=== PATIENT | male | born 1965 | race Caucasian/White ===

== ENCOUNTER 2022-05-08 06:22 | Inpatient (IN) ==
--- NOTE | 2022-04-12 22:01 | PAT Medication Instructions ---
Medication Instructions Date of Service April 12, 2022 Home Medications aspirin 81 mg capsule 81 mg PO QAM celecoxib 200 mg capsule (Celebrex) 200 mg PO QAM cholecalciferol (vitamin D3) 125 mcg (5,000 unit) tablet (Vitamin D3) 125 mcg PO Q2D cyanocobalamin (vitamin B-12) 500 mcg tablet (Vitamin B-12) 500 mcg PO Q2D cyclobenzaprine 10 mg tablet 10 mg PO TID PRN Pain gabapentin 600 mg tablet 600 mg PO TID gemfibrozil 600 mg tablet (Lopid) 600 mg PO BID hydrocodone 5 mg-acetaminophen 325 mg tablet 1 tab PO BID PRN Pain losartan 100 mg-hydrochlorothiazide 25 mg tablet (Hyzaar) 1 tab PO QAM omeprazole 20 mg capsule,delayed release 20 mg PO QAM rosuvastatin 10 mg tablet (Crestor) 10 mg PO QAM sertraline 50 mg tablet (Zoloft) 50 mg PO QAM tadalafil 5 mg tablet (Cialis) 5 mg PO QAM tamsulosin 0.4 mg capsule (Flomax) 0.4 mg PO QAM ASK your surgeon for instructions celecoxib 200 mg capsule (Celebrex) 200 mg PO QAM ASK your prescriber and surgeon aspirin 81 mg capsule 81 mg PO QAM STOP taking 48 hours before surgery gemfibrozil 600 mg tablet (Lopid) 600 mg PO BID STOP taking 24 hours before surgery tadalafil 5 mg tablet (Cialis) 5 mg PO QAM DO NOT take the morning of surgery cholecalciferol (vitamin D3) 125 mcg (5,000 unit) tablet (Vitamin D3) 125 mcg PO Q2D cyanocobalamin (vitamin B-12) 500 mcg tablet (Vitamin B-12) 500 mcg PO Q2D cyclobenzaprine 10 mg tablet 10 mg PO TID PRN Pain losartan 100 mg-hydrochlorothiazide 25 mg tablet (Hyzaar) 1 tab PO QAM Take morning of surgery With a small sip of water, OTHERWISE NOTHING TO EAT OR DRINK AFTER MIDNIGHT: gabapentin 600 mg tablet 600 mg PO TID (continue as normal unless told otherwise by surgeon) hydrocodone 5 mg-acetaminophen 325 mg tablet 1 tab PO BID PRN Pain (if needed) omeprazole 20 mg capsule,delayed release 20 mg PO QAM rosuvastatin 10 mg tablet (Crestor) 10 mg PO QAM sertraline 50 mg tablet (Zoloft) 50 mg PO QAM tamsulosin 0.4 mg capsule (Flomax) 0.4 mg PO QAM Take evening before surgery cyclobenzaprine 10 mg tablet 10 mg PO TID PRN Pain (if needed) gabapentin 600 mg tablet 600 mg PO TID hydrocodone 5 mg-acetaminophen 325 mg tablet 1 tab PO BID PRN Pain (if needed) Other Notes If you have any questions please call us at [phone] or [phone] or [phone] or [phone]
--- NOTE | 2022-04-18 13:08 | Anesthesiology Consultation ---
Date of Service April 18, 2022 Assessment & Plan (1) Encounter for pre-operative examination: Chart Review Chart Review: Acceptable Risk for Surgery (pending PCP clearance 04/25/22, possible daughter's anesthesia records, and repeat labs day prior to surgery per Blood Bank ) and Patient seen in Pre Admission Testing -Awaiting PCP clearance 04/25/22 -Discussed patient's daughter's anesthesia reaction with Dr. Davison- patient will attempt to get daughter's anesthesia records (had one episode of "being really hot" after surgery- no issues since then- patient denies FH of MH but will attempt to get records to confirm) Pt had positive antibodies with T&S- per Blood Bank- patient will need additional labs and specific blood ordered day prior to surgery- patient will be getting repeat labs at [facility] between 7-8am on 05/07/22 (patient and Blood Bank aware) Per PAT appt on 04/18/22, patient denies any recent travel or large group activities. Pt is vaccinated for Covid. Will leave to surgeon's discretion if preop Covid testing needed. Educated on importance of using Covid precautions one week prior to surgery History Surgery Operation Date: 05/08/22 07:45 Proposed Procedures p L2-S1 Decompression and Fusion - Laci Najera, Height/Weight Height: 6 ft Weight: 147.5 kg Allergies Allergy/AdvReac Type Severity Reaction Status Date / Time No Known Allergies Allergy Verified 04/12/22 12:17 Medications Home Medications Medication Instructions Recorded Confirmed Last Taken aspirin 81 mg capsule 81 mg PO QAM 04/12/22 04/12/22 Unknown celecoxib 200 mg capsule (Celebrex) 200 mg PO QAM 04/12/22 04/12/22 Unknown cholecalciferol (vitamin D3) 125 125 mcg PO Q2D 04/12/22 04/12/22 Unknown mcg (5,000 unit) tablet (Vitamin D3) cyanocobalamin (vitamin B-12) 500 500 mcg PO Q2D 04/12/22 04/12/22 Unknown mcg tablet (Vitamin B-12) cyclobenzaprine 10 mg tablet 10 mg PO TID PRN Pain 04/12/22 04/12/22 Unknown gabapentin 600 mg tablet 600 mg PO TID 04/12/22 04/12/22 Unknown gemfibrozil 600 mg tablet (Lopid) 600 mg PO BID 04/12/22 04/12/22 Unknown hydrocodone 5 mg-acetaminophen 325 1 tab PO BID PRN Pain 04/12/22 04/12/22 Unknown mg tablet losartan 100 1 tab PO QAM 04/12/22 04/12/22 Unknown mg-hydrochlorothiazide 25 mg tablet (Hyzaar) omeprazole 20 mg capsule,delayed 20 mg PO QAM 04/12/22 04/12/22 Unknown release rosuvastatin 10 mg tablet (Crestor) 10 mg PO QAM 04/12/22 04/12/22 Unknown sertraline 50 mg tablet (Zoloft) 50 mg PO QAM 04/12/22 04/12/22 Unknown tadalafil 5 mg tablet (Cialis) 5 mg PO QAM 04/12/22 04/12/22 Unknown tamsulosin 0.4 mg capsule (Flomax) 0.4 mg PO QAM 04/12/22 04/12/22 Unknown Past Medical History Medical History (Updated 04/19/22 @ 09:18 by Patricia Mulligan PA-C) Family history of reaction to anesthesia Daughter - got "hot" and anxious in the post op area after surgery - remote hx- no issues with subsequent surgeries - denies hx of MH GERD (gastroesophageal reflux disease) Well controlled and stable High triglycerides Recently started on Crestor (also on gemfibrozil) History of chronic back pain History of COVID-19 09/2021, pcr test [facility] [place], not hosp; body aches, fever>resolved, did take pax lovid History of urinary retention Trouble starting the urinary flow in the morning- patient unsure if related to back issues vs prostate Hx of blood clots Noted incidentally on routine eye exam - blood clot to eye - s/p injections - no current issues - currently on ASA daily Hypertension Sleep apnea cpap Exercise / Class Metabolic Activity II 4-5 Yardwork/Stairs/Walk up hill (one flight of stairs - no chest pain or SOB ) Past Surgical History Surgical History No history of previous surgery Past Anesthesia History No Family Hx of Anesthesia Complications (with exception to daughter- got hot in the post op area and anxious- no hx of MH per patient ) History of PONV No Hx of Motion Sickness Social History Smoking Status: Current every day smoker Smoking cigarettes per day: used to use cigarettes, now vapes Do You Dip or Chew Tobacco: No Hx Alcohol Use: Yes alcohol intake frequency: holidays/special occasions only Hx Substance Use: No substance use type: does not use Review of Systems Patient denies chest pain, shortness of breath, dyspnea on exertion, cough, wheezing, palpitations. No hx of seizures, stroke, [place]. No hx of blood clots or blood transfusions Physical Exam Vital Signs VITALS BP 125/73 P 77 TEMP 98.7 SP02 95% RESP 16 Constitutional no acute distress ENMT Mouth: no TMJ clicking Thyromental Distance: > or= 3.5 Finger Breadths (3.5) Mallampati Class: III Upper partial Neck neck extension not limited Respiratory normal respiratory effort; no respiratory distress Auscultation: lungs clear to auscultation bilaterally; no wheezes Cardiovascular Rate/Rhythm: regular rate and regular rhythm Heart Sounds: no murmur Vessels: no carotid bruit Musculoskeletal Spine: no pain with cervical ROM Extremities: extremities normal to inspection Psychiatric Orientation: alert Lab Results Anesthesia Preop Results Results Anesthesia Widget: PT 12.1 Seconds (9.0-12.0) H 04/18/22 PTT 26.1 Seconds (21.0-31.0) 04/18/22 INR 1.1 (0.9-1.1) 04/18/22 Urine Color Yellow 04/18/22 Urine Appearance Clear (Clear) 04/18/22 Urine pH 7.0 (4.5-7.5) 04/18/22 Urine Specific Cades 1.023 (1.000-1.030) 04/18/22 Urine Protein Trace (Negative) H 04/18/22 Urine Glucose (UA) Negative (Negative) 04/18/22 Urine Ketones Trace (Negative) H 04/18/22 Urine Blood Negative (Negative) 04/18/22 Urine Nitrite Negative (Negative) 04/18/22 Urine Bilirubin Negative (Negative) 04/18/22 Urine Urobilinogen Negative (Negative) 04/18/22 Urine Leukocyte Esterase Negative (Negative) 04/18/22 Urine WBC (Auto) 0 /hpf (0-5) 04/18/22 Urine RBC (Auto) 0-4 /hpf (0-4) 04/18/22 Urine Hyaline Casts (Auto) 1-5 /lpf (0-5) 04/18/22 Urine Epithelial Cells (Auto) 0-5 /lpf (0-5) 04/18/22 Urine Bacteria (Auto) Negative (Negative) 04/18/22 Blood Type A Positive 04/18/22 Antibody Screen POSITIVE A 04/18/22 Testing Laboratory Results Positive antibodies- per Blood Bank- patient needs additional testing done within 48 hours of surgery- patient will come to [facility] 05/07/22 between 7-8am for repeat labs (pt and Blood Bank aware) 04/06/22= WBC: 7.70 H/H: 14.0/42.1 PLATELETS: 219 SODIUM: 136 POTASSIUM: 4.1 CHLORIDE: 102 CO2: 26.0 BUN: 17.0 CREATININE: 1.10 GLUCOSE: 136 Electrocardiogram Date: 04/18/22 Findings: + NSR @ (74bpm ) Normal EKG per cardio Chest X-Ray Date: 04/18/22 Findings: + NAD COVID-19 Risk Screen Screening Information COVID-19 Screen Date: 04/18/22 Exposure 21 Days Family/Household +COVID Last 21 Days: No Exposure 10 Days Any COVID Exposure Last 10 Days: No Symptoms Last 10 Days Experienced COVID Sx Last 10 Days: No + COVID 0-90 Days COVID + in Last 0-90 Days: No Risk Plan COVID Risk Plan: No Risk Identified Patient Education COVID Preop Screening Education Complete: Yes
[~2022-05-08 06:22] MED LIST: ACETAMINOPHEN 500 MG TAB PO SCH; CeleBREX 200 MG CAP PO SCH; GABAPENTIN 600 MG DOSE PO SCH; LR 15ML/HR IV SCH
[2022-05-08] MEDS ORDERED: fentaNYL citrate 100 MCG/2 ML VIAL ONE (07:03)
[2022-05-08] MEDS ORDERED: LIDOCAINE 2% MPF LOCAL 5 ML VIAL INFIL ONE (07:03)
[2022-05-08] MEDS ORDERED: PROPOFOL IV EMULSION 10 MG/ML 20 ML VIAL IV ONE ×2 (07:03→08:30)
[2022-05-08] MEDS ORDERED: ROCURONIUM BROMIDE 10 MG/ML 5 ML VIAL IV ONE ×6 (07:03→10:21)
[2022-05-08] MEDS ORDERED: MIDAZOLAM HCL 1 MG/ML 2ML VIAL ONE (07:04)
[2022-05-08] MEDS ORDERED: KETAMINE 50 MG/5 ML SYRINGE ONE (07:04)
[2022-05-08] MEDS ORDERED: ePHEDrine sulfate 50 MG/ML AMP IV PRN ×2 (07:16→15:40)
[2022-05-08] MEDS ORDERED: ONDANSETRON INJ 2 MG/ML 2 ML VIAL IV PRN ×3 (07:16→16:50)
[2022-05-08] MEDS ORDERED: LABETALOL HCL IV 5 MG/ML 20ML IV PRN ×2 (07:16→15:40)
[2022-05-08] MEDS ORDERED: PHENYLEPHRINE 100MCG/ML 5ML SYR IV PRN ×2 (07:16→15:41)
[2022-05-08] MEDS ORDERED: ATROPINE SULFATE 0.1 MG/ML 10ML SYR IV PRN ×2 (07:16→15:41)
[2022-05-08] MEDS ORDERED: HYDROmorphone INJ 1 MG/ML SYRINGE IV PRN ×3 (07:16→16:50)
[2022-05-08] MEDS ORDERED: MEPERIDINE HCL 25 MG/ML CARP/VIAL IV PRN ×2 (07:16→15:40)
[2022-05-08] MEDS ORDERED: BUPIVACAINE/EPINEPHRINE 0.25% 1:200,000 30 ML VIAL ONE (07:37)
[2022-05-08] MEDS ORDERED: ceFAZolin 330 MG/ML 1 GM VIAL ONE (07:37)
--- NOTE | 2022-05-08 07:37 | History & Physical Bridge Note ---
Date of Service May 08, 2022 History & Physical Bridge Note I have examined the patient, reviewed the History & Physical and in the interval since the performance of the History & Physical I have noted the following changes of clinical significance: no changes noted
--- NOTE | 2022-05-08 07:38 | History & Physical Report ---
Date of Service May 08, 2022 Assessment & Plan (1) Neurogenic claudication due to lumbar spinal stenosis: Plan: L2-S1 decompression and fusion History of Present Illness Chief Complaint: Back and leg pain Primary Care Provider: Cherise Rice This is a 57-year-old male presents with chronic persistent back and leg pain after failing since course of nonoperative care is here for surgical intervention. Allergies Allergy/AdvReac Type Severity Reaction Status Date / Time No Known Allergies Allergy Verified 05/08/22 06:53 Home Medications Medication Instructions Recorded Confirmed Type aspirin 81 mg capsule 81 mg PO QAM 04/12/22 05/08/22 History celecoxib 200 mg capsule (Celebrex) 200 mg PO QAM 04/12/22 05/08/22 History cholecalciferol (vitamin D3) 125 125 mcg PO Q2D 04/12/22 05/08/22 History mcg (5,000 unit) tablet (Vitamin D3) cyanocobalamin (vitamin B-12) 500 500 mcg PO Q2D 04/12/22 05/08/22 History mcg tablet (Vitamin B-12) cyclobenzaprine 10 mg tablet 10 mg PO TID PRN Pain 04/12/22 05/08/22 History gabapentin 600 mg tablet 600 mg PO TID 04/12/22 05/08/22 History gemfibrozil 600 mg tablet (Lopid) 600 mg PO BID 04/12/22 05/08/22 History hydrocodone 5 mg-acetaminophen 325 1 tab PO BID PRN Pain 04/12/22 05/08/22 History mg tablet losartan 100 1 tab PO QAM 04/12/22 05/08/22 History mg-hydrochlorothiazide 25 mg tablet (Hyzaar) omeprazole 20 mg capsule,delayed 20 mg PO QAM 04/12/22 05/08/22 History release rosuvastatin 10 mg tablet (Crestor) 10 mg PO QAM 04/12/22 05/08/22 History sertraline 50 mg tablet (Zoloft) 50 mg PO QAM 04/12/22 05/08/22 History tadalafil 5 mg tablet (Cialis) 5 mg PO QAM 04/12/22 05/08/22 History tamsulosin 0.4 mg capsule (Flomax) 0.4 mg PO QAM 04/12/22 05/08/22 History Past Med/Surg History Medical History (Updated 05/08/22 @ 07:38 by Laci Najera DO) Family history of reaction to anesthesia Daughter - got "hot" and anxious in the post op area after surgery - remote hx- no issues with subsequent surgeries - denies hx of MH GERD (gastroesophageal reflux disease) Well controlled and stable High triglycerides Recently started on Crestor (also on gemfibrozil) History of chronic back pain History of COVID-19 09/2021, pcr test [facility] [place], not hosp; body aches, fever>resolved, did take pa xlovid History of urinary retention Trouble starting the urinary flow in the morning- patient unsure if related to back issues vs prostate Hx of blood clots Noted incidentally on routine eye exam - blood clot to eye - s/p injections - no current issues - currently on ASA daily Hypertension Morbid obesity Sleep apnea cpap Surgical History No history of previous surgery Social History Smoking Status: Current every day smoker Cigarettes Per Day: used to use cigarettes, now vapes; Second Hand Exposure: Yes; Do You Dip or Chew Tobacco: No; Tobacco Cessation Education Requested by Patient: No Hx Alcohol Use: Yes Hx Substance Use: No Preferred Language: Cambodian Communication Ability: Effective Shingle Weaver Required: No Beliefs That Will Affect Care: None Current Living Situation: Spouse Other Information That Helps Us Care for You: No Feels Safe at Home: Yes Safety Concerns: Feels Safe At This Time Assistive Devices: CPAP, Denture - Upper and Glasses Assistive Devices Comment: partial upper denture Physical Exam Physical Exam: Patient is alert and oriented Heart regular rhythm Lungs clear Results & Data Results & Data ([facility]) Vital Signs (Past 12 Hours) Vital Signs Temp Pulse Resp BP Pulse Ox O2 Del Method 05/08/22 07:03 36.8 C 79 22 107/60 95 Room Air
[2022-05-08] MEDS ORDERED: DEXAMETHASONE SOD INJ 4 MG/ML VIAL ONE (08:34)
[2022-05-08] MEDS ORDERED: ONDANSETRON INJ 2 MG/ML 2 ML VIAL ONE (08:34)
[2022-05-08] MEDS ORDERED: HYDROmorphone INJ 2 MG/ML SYR/VIAL ONE (08:39)
[2022-05-08] MEDS ORDERED: FLOSEAL HEMOSTATIC MATRIX 10ML TOP ONE (08:46)
[2022-05-08] MEDS ORDERED: ePHEDrine sulfate 50 MG/ML SYR ONE (09:06)
[2022-05-08] MEDS ORDERED: ALBUMIN HUMAN 5% 12.5 GM/250 ML VIAL IV ONE (09:57)
[2022-05-08] MEDS ORDERED: PHENYLEPHRINE HCL 10 MG/ML VIAL ONE (10:02)
[2022-05-08] MEDS ORDERED: SUGAMMADEX SODIUM 200 MG/2 ML VIAL IV ONE (11:40)
[2022-05-08] MEDS ORDERED: GLYCOPYRROLATE 0.2 MG/ML VIAL ONE (11:43)
[2022-05-08] MEDS ORDERED: NEOSTIGMINE METHYLSULFATE 1 MG/ML 10ML VIAL ONE (11:43)
--- NOTE | 2022-05-08 11:48 | Operative Report ---
Post Operative Report Pre & Post Diagnosis Operation Date: 05/08/22 07:45 Pre-Op Diagnosis: Lumbar spinal stenosis with neurogenic claudication Lumbar disc herniation with radiculopathy Morbid obesity Post-Op Diagnosis: Same I identified the patient and participated in the time-out.: Yes Procedure Operation Date: 05/08/22 07:45 Actual Procedures #1 lumbar decompression bilateral medial facetectomies and foraminotomies L1-L2, L2-L3, L3-L4, L4-L5 and L5-S1. #2 posterior spinal fusion L2-S1. #3 placement posterior segmental instrumentation L2-S1. #4 interbody fusion L3-L4, L4-5 and L5-S1. #5 placement of Spira 14 x 26 mm cage at L3-L4, 14 x 26 mm cage at L4-L5 and 13 x 26 mm cage L5-S1. #6 placement locally harvested morselized autograft in the posterior gutters. #7 placement of I factor combined with V toss in interbody space and posterior lateral gutters. Surgeon Laci Najera, DO Route Vending Machine Serv[employer] Flor Singleton Estimated Blood Loss 1,400 Findings See Below The patient is 6 foot tall weighing over 144 kg with a BMI in excess of 43. This combined with an EBL of greater than 1400 cc created significant technical difficulty. This at least 50% increased operative time. Specimens None Indications This is a 57-year-old male who presents above-mentioned diagnosis after failed course of nonoperative care is here for surgical intervention. Description of Procedure Patient was met with identified informed consent obtained. Patient was then ta brayan to the operative suite underwent ablation placed in a prone position on a Zoltan table top Edgar frame. All bony prominences well-padded eyes inspected to ensure no external pressure placed upon the. This point the lumbar spine was prepped and draped in the normal sterile fashion. Sharp dissection with the assistance of Bovie cautery was performed down to and exposing the lamina transverse processes of L2 L3-L4-L5 and the sacral ala bilaterally. From caudal to cephalad fashion complete laminectomy of L5 L4 L3 L2 and partial laminectomy of L1 was performed including bilateral medial facetectomies and foraminotomies addressing severe spinal stenosis. Pedicle screws were then placed in L2 L3-L4-L5 and S1 levels bilaterally with assistance of fluoroscopy and appropriately sized main placed. By way of a transforaminal approach on the right a complete discectomy of L5-S1 was performed endplates curetted to subcortical and bone and a 13 x 26 mm spiral cage filled with I factor tapped in position. Then proceeded to L4-L5 and again by way of a transforaminal approach on the right complete discectomy performed endplates curetted to subcortical and bone and a 14 x 26 mm spiral cage filled with I factor tapped in position. Lastly proceeded to L3-L4 and again by way of a transforaminal approach and right complete discectomy performed endplates curetted to subcortical bleeding b one and a 14 x 26 mm spiral cage with I factor tapped in position. Rods and locked in final position bilaterally. The transverse processes of L2 L3-L4-L5 and the sacral ala burred to subcortically bone. I factor combined with V toss and locally harvested morselized autograft placed in the posterior gutters. 15 round MARISOL drain inserted. The incision was then closed with 1 Vicryl in the fascia 2-0 Vicryl subcutaneously and 4 Monocryl for final skin closure. Steri- Strips dressings placed. Patient waken taken to PACU stable condition. Please note spinal cord monitoring was utilized at the procedure no changes noted. Lastly Flor Singleton was present at the entire procedure involved patient positioning complex portions of the surgery and final skin closure. I attest to the content of the Intraoperative Record and any orders documented therein. Any exceptions are noted below.
[2022-05-08] MEDS: fentaNYL citrate 100 MCG/2 ML VIAL IV PRN ×3 (12:30→13:44)
[2022-05-08] MEDS ORDERED: HYDROmorphone INJ 0.5 MG/0.5 ML SYR ONE (12:36)
[2022-05-08] MEDS ORDERED: HYDROmorphone INJ 0.5 MG/0.5 ML SYR IV STA (12:36)
--- NOTE | 2022-05-08 12:53 | Anesthesiology Progress Note ---
Date of Service May 08, 2022 Anesthesia Post Procedure Vital Signs Vital Signs: Temp Pulse Resp BP Pulse Ox O2 Del Method O2 Flow Rate 05/08/22 12:35 77 21 103/66 94 Oxymask 5 05/08/22 12:25 78 21 124/68 100 Oxymask 5 05/08/22 12:15 77 22 141/71 H 99 Oxymask 5 05/08/22 12:08 36.3 C L 78 22 110/67 96 Oxymask 5 05/08/22 07:03 36.8 C 79 22 107/60 95 Room Air Pain Intensity Lower Back: Pain Intensity: 2 Transfer of Care Handoff Completed per policy Notes Mental Status: alert / awake / arousable Patient Amnestic to Procedure: Yes Nausea / Vomiting: adequately controlled Pain: adequately controlled Airway Patency, RR, SpO2: stable & adequate BP & HR: stable & adequate Hydration State: stable & adequate Anesthetic Complications: no major complications apparent and Pt Satisfied with anesthetic care Notes: The patient is resting comfortably. His vital signs are stable. The patient's EBS was 1500 ml for the surgery. He was noted to have dark red tinged urine and only put out about 150 ml of urine for the procedure. His vital signs are stable. He remains on face mask oxygen and did bring his CPAP machine. [facility] and they will follow him on the floor.
--- NOTE | 2022-05-08 13:05 | Fluoroscopy Report ---
FL lumbar spine 2-3V CLINICAL HISTORY: L2-S1 DECOMPRESSION AND FUSION WITH INTERBODIES TECHNIQUE: 5 views were obtained with the C-arm in the OR with the above procedure. Total fluoroscopy time was 46.1 seconds. Radiation dose was 40.01 mGy. Comparison: None available at the time of this dictation. FINDINGS/IMPRESSION: Intraoperative images were obtained of L2-S1 decompression and fusion. Please correlate with intraoperative fluoroscopy and operative report. ACT 112: Negative or not required by law. Electronically signed by: Basilio Morrow M.D. 05/08/2022 1:04 PM
[2022-05-08] MEDS ORDERED: fentaNYL citrate 100 MCG/2 ML VIAL IV PRN (15:40)
[2022-05-08] MEDS: LACTATED RINGER'S 1,000 ML IV SCH ×2 (16:40→23:36)
[2022-05-08] MEDS ORDERED: traMADol HCL 50 MG TABLET PO PRN (16:50)
[2022-05-08] MEDS ORDERED: CYCLOBENZAPRINE HCL 10 MG TAB PO PRN (16:50)
[2022-05-08] MEDS ORDERED: ACETAMINOPHEN 1,000 MG/100 ML VIAL IV PRN (16:50)
[2022-05-08] MEDS ORDERED: FAMOTIDINE 20 MG TAB PO PRN (16:50)
[2022-05-08] MEDS ORDERED: METOCLOPRAMIDE HCL INJ 5 MG/ML 2 ML VIAL IV PRN (16:50)
[2022-05-08] MEDS ORDERED: ONDANSETRON 4 MG OD TAB PO PRN (16:50)
[2022-05-08] MEDS ORDERED: LORazepam 2 MG/1 ML VIAL IV PRN (16:50)
[2022-05-08] MEDS ORDERED: MAGNESIUM HYDROXIDE SUSP 30 ML UDC PO PRN (16:50)
[2022-05-08] MEDS ORDERED: diphenhydrAMINE Capsule 25 MG CAP PO PRN (16:50)
[2022-05-08] MEDS ORDERED: ALUMINUM/MAGNESIUM SUSP 30 ML UDC PO PRN (16:50)
[2022-05-08] MEDS ORDERED: HYDROmorphone INJ 0.5 MG/0.5 ML SYR IV PRN (16:50)
[2022-05-08] MEDS ORDERED: hydrOXYzine HCl 25 MG TAB PO PRN (16:50)
[2022-05-08] MEDS ORDERED: DO NOT ADMINISTER FLU VACCINE PRN (16:50)
[2022-05-08] MEDS ORDERED: PROMETHAZINE HCL 12.5 MG in SODIUM CHLORIDE 0.9% 50 ML IV PRN (16:50)
[2022-05-08] MEDS ORDERED: NALOXONE HCL 0.4 MG/1 ML VIAL/CARP IV PRN (16:50)
[2022-05-08] MEDS ORDERED: DO NOT ADMINISTER PNEUMOCOCCAL VACCINE PRN (16:50)
[2022-05-08] MEDS ORDERED: SOD PHOSPHATE/SOD BIPHOSPHATE ENEMA 132 ML BTL PR PRN (16:50)
[2022-05-08] MEDS ORDERED: LORazepam 0.5 MG TAB PO PRN (16:50)
[2022-05-08] MEDS ORDERED: bisacodyL 10 MG SUPP PR PRN (16:50)
[2022-05-08] MEDS: GABAPENTIN 600 MG TAB PO SCH ×2 (18:30→20:53)
[2022-05-08] MEDS: CHOLECALCIFEROL 5,000 UNITS 125 MCG TAB PO SCH (18:30)
[2022-05-08] MEDS: CYANOCOBALAMIN (B-12) 500 MCG TABLET PO SCH (18:30)
[2022-05-08] MEDS: ceFAZolin 2000MG 2,000 MG/15 ML SYR IV SCH (18:35)
--- NOTE | 2022-05-08 19:26 | Consultation ---
Date of Consultation May 08, 2022 Assessment & Plan (1) Status post lumbar surgery: (2) Neurogenic claudication due to lumbar spinal stenosis: Post op day# 0 S/P L1-S1 decompression and fusion by Dr Dania MORAN#[id number] -pain management per ortho -wound management per ortho -PT/OT as appropriate -DVT prophylaxis per ortho -incentive spirometry -monitor H&H for acute blood loss anemia; pre-op Hgb: 14 -monitor urine output. 150ml output during 4 hour operation. Noted 350ml urine output currently in Rodriguez (3) Hypertension: - Continue losartan, HCTZ (4) HLD (hyperlipidemia): - Continue rosuvastatin, gemfibrozil (5) GERD (gastroesophageal reflux disease): - Continue PPI (6) Sleep apnea: - CPAP at bedtime DVT Prophylaxis -SCDSs Disposition per primary team Follows with Dr Cherise Rice [facility] for routine care Pt was seen and care coordinated with Dr Carballo. See addendum Thank you for this consultation. We will follow the patient with you during their hospital stay. You can reach a member of the [facility]ist Team 12/11 via [employer] (7) Morbid obesity: Supervising Physician Co-Signing Physician Notes Patient is a 57-year-old man status post lumbar decompression and fusion this afternoon. He has not walked postoperatively and reports pain is well managed. He states he just adjusted himself in bed and felt some pain with this but otherwise is doing well. He has no numbness or tingling in his feet he denies any chest pain or trouble breathing or other issues. Rodriguez catheter is completely full and total urine output has been over 3 L today. Patient reports drinking mostly Pepsi and Coke at home and avoiding water. He reports being dehydrated most of the time. Records and medication list were reviewed. Physical exam as noted above. Continue plan as noted above. Thank you for this consultation. DO Haris History of Present Illness Requesting Physician: Dr Najera Reason for Consultation: Post op medical management Attending Physician: Laci Najera DO History of Present Illness Patient is 57 y/o M with PMH HTN, HLD, GERD, urinary retention, NEVILLE on CPAP, obesity seen in medical consultation s/p L1-S1 decompression and fusion today by Dr Najera. Post op patient reports back pain is controlled. Denies lower extremity pain or paresthesias. Denies nausea, vomiting. Last BM yesterday. Has Rodriguez cath in place. Reported urine output of 150ml during 4 hour case. Noted 350ml urine in Rodriguez currently. Denies fever/chills, diaphoresis, N/V/D, FINCH, dizziness, CP, SOB, cough, sore throat, rhinorrhea, abdominal pain, extremity edema, rashes, dysruia, hematuria. Allergies Allergy/AdvReac Type Severity Reaction Status Date / Time No Known Allergies Allergy Verified 05/08/22 06:53 Home Medications Medication Instructions Recorded Confirmed Type aspirin 81 mg capsule 81 mg PO QAM 04/12/22 05/08/22 History celecoxib 200 mg capsule (Celebrex) 200 mg PO QAM 04/12/22 05/08/22 History cholecalciferol (vitamin D3) 125 125 mcg PO Q2D 04/12/22 05/08/22 History mcg (5,000 unit) tablet (Vitamin D3) cyanocobalamin (vitamin B-12) 500 500 mcg PO Q2D 04/12/22 05/08/22 History mcg tablet (Vitamin B-12) cyclobenzaprine 10 mg tablet 10 mg PO TID PRN Pain 04/12/22 05/08/22 History gabapentin 600 mg tablet 600 mg PO TID 04/12/22 05/08/22 History gemfibrozil 600 mg tablet (Lopid) 600 mg PO BID 04/12/22 05/08/22 History hydrocodone 5 mg-acetaminophen 325 1 tab PO BID PRN Pain 04/12/22 05/08/22 History mg tablet losartan 100 1 tab PO QAM 04/12/22 05/08/22 History mg-hydrochlorothiazide 25 mg tablet (Hyzaar) omeprazole 20 mg capsule,delayed 20 mg PO QAM 04/12/22 05/08/22 History release rosuvastatin 10 mg tablet (Crestor) 10 mg PO QAM 04/12/22 05/08/22 History sertraline 50 mg tablet (Zoloft) 50 mg PO QAM 04/12/22 05/08/22 History tadalafil 5 mg tablet (Cialis) 5 mg PO QAM 04/12/22 05/08/22 History tamsulosin 0.4 mg capsule (Flomax) 0.4 mg PO QAM 04/12/22 05/08/22 History Patient History Medical History (Updated 05/08/22 @ 21:29 by Bailee Perez PA-C) Family history of reaction to anesthesia Daughter - got "hot" and anxious in the post op area after surgery - remote hx- no issues with subsequent surgeries - denies hx of MH GERD (gastroesophageal reflux disease) Well controlled and stable High triglycerides Recently started on Crestor (also on gemfibrozil) History of chronic back pain History of COVID-19 09/2021, pcr test [facility] [place], not hosp; body aches, fever>resolved, did take paxlovid History of urinary retention Trouble starting the urinary flow in the morning- patient unsure if related to back issues vs prostate HLD (hyperlipidemia) Hx of blood clots Noted incidentally on routine eye exam - blood clot to eye - s/p injections - no current issues - currently on ASA daily Hypertension Morbid obesity Sleep apnea cpap Surgical History (Updated 05/08/22 @ 21:28 by Bailee Perez PA-C) No history of previous surgery Social History Smoking Status: Current every day smoker Cigarettes Per Day: used to use cigarettes, now vapes; Second Hand Exposure: Yes; Do You Dip or Chew Tobacco: No; Tobacco Cessation Education Requested by Patient: No Hx Alcohol Use: Yes Hx Substance Use: No Preferred Language: Romansh Communication Ability: Effective Certified Flight Instructor Required: No Beliefs That Will Affect Care: None Current Living Situation: Spouse Other Information That Helps Us Care for You: No Feels Safe at Home: Yes Safety Concerns: Feels Safe At This Time Assistive Devices: CPAP, Denture - Upper and Glasses Assistive Devices Comment: partial upper denture Review of Systems Review of Systems: All systems reviewed & are unremarkable except as noted in HPI & below Physical Exam Physical Exam: General: no distress, +obese Head: normocephalic, atraumatic Eyes: conjunctiva non-injected, anicteric ENT: normal inspection external ears, nose, mucous membranes moist Neck: supple, trachea midline Lungs: clear, no respiratory distress, no wheezing/rhonchi/rales CV: RRR, no murmur, no pretibial edema Abd: protuberant, normal BS, soft, non-tender Back: surgical dressing in place, MARISOL drain in place with serosanguineous drainage Ext: no cyanosis, no calf tenderness; bilateral pedal pushes and pulls intact, distal pulses intact, sensation to light touch intact Neuro: A&O x 3, no focal deficits noted, normal affect Skin: warm, dry Results & Data ([facility]) Vital Signs (Past 12 Hours) Vital Signs Temp Pulse Pulse Resp BP Pulse Ox O2 Del Method 05/08/22 19:23 37.0 C 90 18 146/84 H 99 Room Air 05/08/22 16:40 37 C 95 H 16 118/81 95 Room Air 05/08/22 15:45 81 16 126/68 97 Nasal Cannula 05/08/22 15:15 81 16 128/58 L 96 Nasal Cannula 05/08/22 14:45 75 16 138/71 96 Nasal Cannula 05/08/22 14:15 76 16 136/67 97 Nasal Cannula 05/08/22 14:00 83 16 133/72 98 Nasal Cannula 05/08/22 13:45 85 13 112/73 98 Nasal Cannula 05/08/22 13:30 36.5 C 82 19 135/75 98 Nasal Cannula 05/08/22 13:15 36.2 C L 76 21 130/66 95 Nasal Cannula 05/08/22 13:05 36.2 C L 81 21 117/66 98 Nasal Cannula 05/08/22 12:55 88 21 110/62 100 Oxymask 05/08/22 12:45 74 21 98/59 L 99 Oxymask 05/08/22 12:35 77 21 103/66 94 Oxymask 05/08/22 12:25 78 21 124/68 100 Oxymask 05/08/22 12:15 77 22 141/71 H 99 Oxymask 05/08/22 12:08 36.3 C L 78 22 110/67 96 Oxymask O2 Flow Rate 05/08/22 19:23 05/08/22 16:40 05/08/22 15:45 2 05/08/22 15:15 2 05/08/22 14:45 2 05/08/22 14:15 2 05/08/22 14:00 2 05/08/22 13:45 2 05/08/22 13:30 2 05/08/22 13:15 2 05/08/22 13:05 2 05/08/22 12:55 5 05/08/22 12:45 5 05/08/22 12:35 5 05/08/22 12:25 5 05/08/22 12:15 5 05/08/22 12:08 5
[2022-05-08] MEDS: DOCUSATE SODIUM/SENNA 50/8.6MG TAB PO SCH (20:53)
[2022-05-08] MEDS: gemfibroziL 600 MG TAB PO SCH (20:53)
[2022-05-08] MEDS: oxyCODONE HCL IR 5 MG TAB (IMMEDIATE RELEASE) PO PRN (21:06)
[2022-05-09] MEDS: ceFAZolin 2000MG 2,000 MG/15 ML SYR IV SCH (01:54)
[2022-05-09] MEDS: POLYETHYLENE (MIRALAX) 17 GM PACK PO SCH ×3 (05:47→18:06)
[2022-05-09] MEDS: oxyCODONE HCL IR 5 MG TAB (IMMEDIATE RELEASE) PO PRN ×2 (05:47→19:18)
[2022-05-09 06:21] LABS: Basophils # (auto) 0.02 K/uL (0-0.2); Basophils % (auto) 0.1 %; Eosinophils # (auto) 0.02 K/uL (0-0.50); Eosinophils % (auto) 0.1 %; Hematocrit (blood only) 31.9 % (40.1-51.0); Hemoglobin 10.8 g/dl (14.0-18.0); Immature Granulocytes # (auto) 0.08 K/uL (0.00-0.02); Immature Granulocytes % (auto) 0.6 %; Lymphocytes # (auto) 1.69 K/uL (1.2-3.4); Mean Corpuscular Hemoglobin 31.1 pg (25.0-34.0); Mean Corpuscular Hgb Conc 33.9 g/dL (32.0-36.0); Mean Corpuscular Volume 91.9 fL (80.0-100.0); Mean Platelet Volume 10.6 fL (9.4-12.4); Monocytes # (auto) 1.21 K/uL (0.24-0.82); Monocytes % (auto) 8.6 %; Neutrophils # (auto) 11.08 K/uL (1.4-6.5); Neutrophils % (auto) 78.6 %; Platelet Count 212 K/uL (130-400); RDW Coefficient of Variation 13.8 % (11.5-14.5); RDW Standard Deviation 46.5 fL (36.4-46.3); Red Blood Count 3.47 M/uL (4.63-6.08)
[2022-05-09 06:59] LABS: Calcium 8.5 mg/dl (8.5-10.1); Potassium 4.3 mmol/L (3.5-5.1)
[2022-05-09 07:05] LABS: BUN Creatinine Ratio 13.2 (10-20); Creatinine Clr Calc Pharmacy 114.9 ml/min; Est GFR (African American) 90.5 ml/min; Est GFR (Non-African American) 78.1 ml/min
[2022-05-09] MEDS: GABAPENTIN 600 MG TAB PO SCH ×3 (08:03→20:57)
[2022-05-09] MEDS: SERTRALINE HCL 50 MG TABLET PO SCH (08:03)
[2022-05-09] MEDS: ROSUVASTATIN CALCIUM 10 MG TAB PO SCH (08:03)
[2022-05-09] MEDS: LOSARTAN/HCTZ 50/12.5MG TAB PO SCH (08:03)
[2022-05-09] MEDS: PANTOprazole 40 MG TAB PO SCH (08:03)
[2022-05-09] MEDS: ASPIRIN 81 MG ECTAB PO SCH (08:03)
[2022-05-09] MEDS: gemfibroziL 600 MG TAB PO SCH ×2 (08:04→20:57)
[2022-05-09] MEDS: dexAMETHasone 6 MG in SYRINGE 0 ML IV SCH (08:04)
[2022-05-09] MEDS: TAMSULOSIN HCL 0.4 MG CAP PO SCH (08:04)
[2022-05-09] MEDS: ACETAMINOPHEN 500 MG TAB PO PRN (08:07)
--- NOTE | 2022-05-09 08:13 | Orthopedic Progress Note ---
Date of Service May 09, 2022 Assessment & Plan (1) Status post lumbar surgery: Plan: Mike is postop day 1 status post L2-S1 decompression instrumented fusion. He is doing well. We will start physical therapy today. Continue pain control. Maintain MARISOL drain. DVT prophylaxis is in the form of teds and SCDs. Admission and Anticipated Discharge Date Admission Date: May 08, 2022 Skyler Rodriguez is postoperative day 1 status post L2-S1 decompression instrumented fusion. He is doing well. He had an uneventful evening. Leg symptoms improved. Back pain controlled. MARISOL drain output not recorded last shift. H&H are 10.8 and 31.9 respectively. Review of Systems Review of Systems: All systems reviewed & are unremarkable except as noted in HPI & below Physical Exam Physical Exam: He sitting up in a chair in no acute distress Alert and oriented x3 Lumbar dressing is clean dry intact with functioning MARISOL drain ANUJ hose intact bilateral Calf soft nontender bilateral Strength intact bilateral lower extremities Results & Data ([facility]) Vital Signs (Past 12 Hours) Vital Signs Temp Pulse Pulse Resp BP BP Pulse Ox 05/09/22 07:55 36.8 C 88 17 124/72 97 05/09/22 02:58 36.5 C 85 18 143/81 H 97 05/08/22 21:45 36.8 C 85 18 144/76 H 98 O2 Del Method 05/09/22 07:55 Room Air 05/09/22 02:58 Room Air 05/08/22 21:45 Room Air
--- NOTE | 2022-05-09 09:59 | Hospitalist Progress Note ---
Date of Service May 09, 2022 Assessment & Plan (1) Status post lumbar surgery: (2) Neurogenic claudication due to lumbar spinal stenosis: Plan: Post op day# 1 S/P L1-S1 decompression and fusion by Dr Najera EBL#1400ml; MARISOL drain 370ml tolerated procedure well pain/wound management per ortho PT/OT as appropriate encourage incentive spirometry boothe cath in place, to be removed today, some bloody drainage noted in boothe, likely trauma from cath UOP adequate per documenation in chart Acute blood loss anemia, expected 2/2 surgery EBL of 1400ml pre op hgb 14; hgb 10.8 today hemodynamically stable no need for transfusion will continue to monitor Leukocytosis wbc 14.10 likely reactive in setting of surgery monitor (3) Hypertension: Plan: BP stable Continue losartan, HCTZ place hold parameters (4) HLD (hyperlipidemia): Plan: Continue rosuvastatin, gemfibrozil (5) GERD (gastroesophageal reflux disease): Plan: Continue PPI (6) Sleep apnea: Plan: CPAP at bedtime DVT Prophylaxis SCDSs Disposition per primary team Follows with Dr Cherise Rice [facility] for routine care Pt was seen and care coordinated with Dr Lyons. See addendum Thank you for this consultation. We will follow the patient with you during their hospital stay. You can reach a member of the [facility]ist Team 12/11 via [employer] A total of 35 minutes were spent with greater than 50% of that time face to face with the patient, personally reviewing all current laboratories, imaging studies, past medication reconciliation, outpatient chart review, and discussion with specialists to collaborate care for the patient with attending. Please see attending documentation for corrections and/or additions. (7) Morbid obesity: Admission and Anticipated Discharge Date Admission Date: May 08, 2022 Supervising Physician Co-Signing Physician Notes Attending addendum: The patient was seen and examined in medical floor He has been feeling much better following surger Minimal back pain but no other symptoms On examination Sitting on a chair without any acute distress Remains hemodynamically stable Chest-clear to auscultate bilaterally Heart-S1-S2, regular Abdomen-benign Extremities-trace edema bilaterally Is labs and imaging studies reviewed Status post lumbar surgery remains medically stable Agree with assessment and plan as outlined above by Julia Lyons Subjective Patient was seen and examined in room 308-1. Follow up lumbar surgery. He feels well this morning. Incisional discomfort but no radicular sx. +flatus but no BM. Tolerated breakfast. Denies n/v, abd pain. Slept well. Review of Systems Review of Systems: All systems reviewed & are unremarkable except as noted in HPI & below Physical Exam Physical Exam: Gen: WD/WN, M, morbidly obese, NAD, A&O x3 HEENT: Normocephalic, atraumatic, conjunctivae moist, sclerae anicteric, mucous membranes moist. Lung: Clear to Auscultation bilaterally, no wheezes/rales/rhonchi Heart: Regular rate, regular rhythm, no murmurs, rubs, or gallops Abdomen: obese, firm, Soft, NT, ND +BS x 4 Extremities: obese legs, No edema Skin: Warm, no rash, negative turgor. Results & Data Results & Data ([facility]) Vital Signs (Past 12 Hours) Vital Signs Temp Pulse Pulse Resp BP BP Pulse Ox 05/09/22 07:20 05/09/22 07:55 36.8 C 88 17 124/72 97 05/09/22 02:58 36.5 C 85 18 143/81 H 97 O2 Del Method 05/09/22 07:20 Room Air 05/09/22 07:55 Room Air 05/09/22 02:58 Room Air Laboratory Results Short CBC 05/09/22 Range/Units 05:41 WBC 14.10 H (4.8-10.8) K/ul Hgb 10.8 L (14.0-18.0) g/dl Hct 31.9 L (40.1-51.0) % Plt Count 212 (130-400) K/uL BMP 05/09/22 05:41 Sodium 138 Potassium 4.3 Chloride 103 Carbon Dioxide 28 BUN 14 Creatinine 1.06 Glucose 139 H Calcium 8.5 Medications Administered Current Inpatient Medications Acetaminophen (Acetaminophen 500 Mg Tab) 1,000 mg PO Q8H PRN PRN Reason: MILD Pain Scale 1,2,3 & Pre PT Stop: 06/07/22 16:49 Last Admin: 05/09/22 08:07 Dose: 1,000 mg Al Hydrox/Mg Hydrox/Simethicone (Aluminum/Magnesium Susp 30 Ml Udc) 30 ml PO Q6H PRN PRN Reason: Dyspepsia Stop: 06/07/22 16:49 Aspirin (Aspirin 81 Mg Ectab) 81 mg PO QAM DAVID Stop: 06/08/22 08:59 Last Admin: 05/09/22 08:03 Dose: 81 mg Atropine Sulfate (Atropine Sulfate 0.1 Mg/Ml 10ml Syr) 0.5 mg IV Q1M PRN PRN Reason: PACU Use-HR<40 &/or Bradycardi Bisacodyl (Bisacodyl 10 Mg Supp) 10 mg NM DAILY PRN PRN Reason: Constipation Stop: 06/07/22 16:49 Cyanocobalamin (Cyanocobalamin (B-12) 500 Mcg Tablet) 500 mcg PO Q2D DAVID Stop: 06/07/22 16:49 Last Admin: 05/08/22 18:30 Dose: 500 mcg Cyclobenzaprine HCl (Cyclobenzaprine Hcl 10 Mg Tab) 10 mg PO TID PRN PRN Reason: Pain Stop: 06/07/22 16:49 Last Admin: 05/08/22 21:10 Dose: 10 mg Diphenhydramine HCl (Diphenhydramine Capsule 25 Mg Cap) 25 mg PO Q6H PRN PRN Reason: Allergic Rhinitis/Insomnia Stop: 06/07/22 16:49 Ephedrine Sulfate (Ephedrine Sulfate 50 Mg/Ml Amp) 5 mg IV Q5M PRN PRN Reason: PACU Use Only-SBP<90 mmHg Stop: 06/07/22 15:39 Famotidine (Famotidine 20 Mg Tab) 20 mg PO Q12H PRN PRN Reason: Dyspepsia Stop: 06/07/22 16:49 Fentanyl Citrate (Fentanyl Citrate 100 Mcg/2 Ml Vial) 25 mcg IV Q5M PRN PRN Reason: PACU Use Only-Pain Stop: 05/22/22 15:39 Last Admin: 05/08/22 14:01 Dose: 25 mcg Gabapentin (Gabapentin 600 Mg Tab) 600 mg PO TID [facility] Stop: 06/07/22 16:49 Last Admin: 05/09/22 08:03 Dose: 600 mg Gemfibrozil (Gemfibrozil 600 Mg Tab) 600 mg PO BID [facility] Stop: 06/07/22 20:59 Last Admin: 05/09/22 08:04 Dose: 600 mg HCTZ/Losartan Potassium (Losartan/Hctz 50/12.5mg Tab) 1 tab PO QAM DAVID Stop: 06/08/22 08:59 Last Admin: 05/09/22 08:03 Dose: 1 tab Hydromorphone HCl (Hydromorphone Inj 1 Mg/Ml Syringe) 0.25 mg IV Q5M PRN PRN Reason: PACU Use Only-Pain Stop: 05/22/22 15:40 Hydromorphone HCl (Hydromorphone Inj 0.5 Mg/0.5 Ml Syr) 0.5 mg IV Q3H PRN PRN Reason: MODERATE Pain (Scale 4,5,6) & Pre PT Stop: 05/22/22 16:49 Hydromorphone HCl (Hydromorphone Inj 1 Mg/Ml Syringe) 1 mg IV Q3H PRN PRN Reason: SEVERE Pain (Scale 7,8,9,10) Stop: 05/22/22 16:49 Hydroxyzine HCl (Hydroxyzine Hcl 25 Mg Tab) 25 mg PO Q8H PRN PRN Reason: Anxiety Stop: 06/07/22 16:49 Promethazine HCl 12.5 mg/ (Sodium Chloride) 50.5 mls @ 202 mls/hr IV Q6H PRN PRN Reason: Nausea &/or Vomiting Stop: 06/07/22 16:49 Acetaminophen (Ofirmev) 1,000 mg in 100 mls @ 400 mls/hr IV Q8H PRN PRN Reason: Pain Rating 1-3 & Pre PT Stop: 05/09/22 16:51 Dexamethasone 6 mg/ Syringe 1.5 mls @ 1 mls/min IV DAILY DAVID Stop: 05/11/22 09:02 Last Admin: 05/09/22 08:04 Dose: 1 mls/min Influenza Virus Vaccine Quadrival (Do Not Administer Flu Vaccine) 1 each N/A PRN PRN PRN Reason: Notification Stop: 06/07/22 16:49 Labetalol HCl (Labetalol Hcl Iv 5 Mg/Ml 20ml) 5 mg IV Q5M PRN PRN Reason: PACU Use-SBP>160 or DBP>100 Stop: 06/07/22 15:39 Lorazepam (Lorazepam 0.5 Mg Tab) 0.5 mg PO Q8H PRN PRN Reason: Sedation/Anxiety Stop: 06/07/22 16:49 Lorazepam (Lorazepam 2 Mg/1 Ml Vial) 0.5 mg IV Q8H PRN PRN Reason: Sedation/Anxiety Stop: 06/07/22 16:49 Magnesium Hydroxide (Magnesium Hydroxide Susp 30 Ml Udc) 30 ml PO Q24H PRN PRN Reason: Constipation Stop: 06/07/22 16:49 Meperidine HCl (Meperidine Hcl 25 Mg/Ml Carp/Vial) 12.5 mg IV Q5M PRN PRN Reason: Surgi Pain/Chills/Rigors Stop: 05/22/22 15:39 Metoclopramide HCl (Metoclopramide Hcl Inj 5 Mg/Ml 2 Ml Vial) 10 mg IV Q6H PRN PRN Reason: Nausea &/or Vomiting Stop: 06/07/22 16:49 Naloxone HCl (Naloxone Hcl 0.4 Mg/1 Ml Vial/Carp) 0.1 mg IV Q5M PRN PRN Reason: Oversedation/Resp depression Stop: 06/07/22 16:49 Ondansetron HCl (Ondansetron Inj 2 Mg/Ml 2 Ml Vial) 4 mg IV ONCE PRN PRN Reason: PACU Use Only-Nausea/Vomiting Stop: 06/07/22 15:40 Ondansetron HCl (Ondansetron Inj 2 Mg/Ml 2 Ml Vial) 4 mg IV Q6H PRN PRN Reason: Nausea &/or Vomiting Stop: 06/07/22 16:49 Ondansetron HCl (Ondansetron 4 Mg Od Tab) 4 mg PO Q6H PRN PRN Reason: Nausea Stop: 06/07/22 16:49 Oxycodone HCl (Oxycodone Hcl Ir 5 Mg Tab (Immediate Release)) 5 - 10 mg PO Q4H PRN PRN Reason: Pain & Pre PT Stop: 05/22/22 16:49 Last Admin: 05/09/22 05:47 Dose: 10 mg Pantoprazole Sodium (Pantoprazole 40 Mg Tab) 40 mg PO QAM DAVID Stop: 06/08/22 08:59 Last Admin: 05/09/22 08:03 Dose: 40 mg Phenylephrine HCl (Phenylephrine 100mcg/Ml 5ml Syr) 100 mcg IV Q5M PRN PRN Reason: PACU Use Only-SBP<90 or HR>70 Stop: 06/07/22 15:40 Pneumococcal Polyvalent Vaccine (Do Not Administer Pneumococcal Vaccine) 1 each N/A PRN PRN PRN Reason: Notification Stop: 06/07/22 16:49 Polyethylene Glycol (Polyethylene (Miralax) 17 Gm Pack) 17 gm PO Q6 [facility] Stop: 06/08/22 05:59 Last Admin: 05/09/22 05:47 Dose: 17 gm Rosuvastatin Calcium (Rosuvastatin Calcium 10 Mg Tab) 10 mg PO QAM [facility] Stop: 06/08/22 08:59 Last Admin: 05/09/22 08:03 Dose: 10 mg Senna/Docusate Sodium (Docusate Sodium/Senna 50/8.6mg Tab) 2 tab PO HS [facility] Stop: 06/07/22 20:59 Last Admin: 05/08/22 20:53 Dose: 2 tab Sertraline HCl (Sertraline Hcl 50 Mg Tablet) 50 mg PO QAM [facility] Stop: 06/08/22 08:59 Last Admin: 05/09/22 08:03 Dose: 50 mg Sodium Biphosphate/Sodium Phosphate (Sod Phosphate/Sod Biphosphate Enema 132 Ml Btl) 132 ml NM ONE PRN PRN Reason: Constipation Stop: 06/07/22 16:49 Tamsulosin HCl (Tamsulosin Hcl 0.4 Mg Cap) 0.4 mg PO QAM [facility] Stop: 06/08/22 08:59 Last Admin: 05/09/22 08:04 Dose: 0.4 mg Tramadol HCl (Tramadol Hcl 50 Mg Tablet) 50 - 100 mg PO Q4H PRN PRN Reason: Moderate-Severe pain & Pre PT Stop: 06/07/22 16:49 Vitamin D (Cholecalciferol 5,000 Units 125 Mcg Tab) 5,000 units PO Q2D [facility] Stop: 06/07/22 16:49 Last Admin: 05/08/22 18:30 Dose: 5,000 units
[2022-05-09] MEDS: DOCUSATE SODIUM/SENNA 50/8.6MG TAB PO SCH (20:57)
[2022-05-10] MEDS: POLYETHYLENE (MIRALAX) 17 GM PACK PO SCH ×3 (00:02→16:20)
[2022-05-10] MEDS: oxyCODONE HCL IR 5 MG TAB (IMMEDIATE RELEASE) PO PRN ×3 (05:11→20:23)
[2022-05-10 06:09] LABS: Basophils # (auto) 0.03 K/uL (0-0.2); Basophils % (auto) 0.3 %; Eosinophils # (auto) 0.04 K/uL (0-0.50); Eosinophils % (auto) 0.4 %; Hematocrit (blood only) 29.2 % (40.1-51.0); Hemoglobin 9.9 g/dl (14.0-18.0); Immature Granulocytes # (auto) 0.08 K/uL (0.00-0.02); Immature Granulocytes % (auto) 0.7 %; Lymphocytes # (auto) 2.29 K/uL (1.2-3.4); Lymphocytes % (auto) 20.8 %; Mean Corpuscular Hemoglobin 31.3 pg (25.0-34.0); Mean Corpuscular Hgb Conc 33.9 g/dL (32.0-36.0); Mean Corpuscular Volume 92.4 fL (80.0-100.0); Mean Platelet Volume 10.6 fL (9.4-12.4); Monocytes # (auto) 1.16 K/uL (0.24-0.82); Monocytes % (auto) 10.5 %; Neutrophils # (auto) 7.41 K/uL (1.4-6.5); Neutrophils % (auto) 67.3 %; Platelet Count 184 K/uL (130-400); RDW Coefficient of Variation 13.6 % (11.5-14.5); RDW Standard Deviation 46.5 fL (36.4-46.3); Red Blood Count 3.16 M/uL (4.63-6.08); White Blood Count 11.01 K/ul (4.8-10.8)
[2022-05-10 06:21] LABS: Estimated Average Glucose 120 mg/dl; Hemoglobin A1C 5.8 % (4.5-5.6)
[2022-05-10 06:27] LABS: Calcium 8.5 mg/dl (8.5-10.1); Potassium 4.1 mmol/L (3.5-5.1)
[2022-05-10 06:33] LABS: Creatinine Clr Calc Pharmacy 114.9 ml/min; Est GFR (African American) 90.5 ml/min; Est GFR (Non-African American) 78.1 ml/min
[2022-05-10] MEDS: gemfibroziL 600 MG TAB PO SCH ×2 (08:22→20:24)
[2022-05-10] MEDS: SERTRALINE HCL 50 MG TABLET PO SCH (08:23)
[2022-05-10] MEDS: TAMSULOSIN HCL 0.4 MG CAP PO SCH (08:23)
[2022-05-10] MEDS: GABAPENTIN 600 MG TAB PO SCH ×3 (08:23→20:24)
[2022-05-10] MEDS: ROSUVASTATIN CALCIUM 10 MG TAB PO SCH (08:23)
[2022-05-10] MEDS: ASPIRIN 81 MG ECTAB PO SCH (08:23)
[2022-05-10] MEDS: PANTOprazole 40 MG TAB PO SCH (08:23)
[2022-05-10] MEDS: LOSARTAN/HCTZ 50/12.5MG TAB PO SCH (08:23)
[2022-05-10] MEDS: dexAMETHasone 6 MG in SYRINGE 0 ML IV SCH (08:24)
[2022-05-10] MEDS: ACETAMINOPHEN 500 MG TAB PO PRN ×2 (08:27→16:41)
--- NOTE | 2022-05-10 11:14 | Hospitalist Progress Note ---
Date of Service May 10, 2022 Assessment & Plan (1) Status post lumbar surgery: (2) Neurogenic claudication due to lumbar spinal stenosis: Plan: Post op day# 2 S/P L1-S1 decompression and fusion by Dr Najera EBL#1400ml Pain/wound management per ortho PT/OT as appropriate encourage incentive spirometry Rodriguez cath removed Acute blood loss anemia, expected 2/2 surgery EBL of 1400ml pre op hgb 14; hgb 10.8 today ->9.8 hemodynamically stable no need for transfusion will continue to monitor Leukocytosis - resolving wbc 14.10 -> 11 likely reactive in setting of surgery monitor (3) Hypertension: Plan: BP stable Continue losartan, HCTZ (4) HLD (hyperlipidemia): Plan: Continue rosuvastatin, gemfibrozil (5) GERD (gastroesophageal reflux disease): Plan: Continue PPI (6) Morbid obesity: Plan: Obtained a1c due to elevated BSG and A1c 5.8, meeting criteria for pre-diabetes; discussed importance of BSG control for surgical healing with weight loss, controlling other risk factors like HTN, HLD. PCP to follow a1c (7) Sleep apnea: Plan: CPAP at bedtime DVT Prophylaxis SCDSs Disposition per primary team Follows with Dr Cherise Rice [facility] for routine care Pt was seen and care coordinated with Dr Lyons. See addendum Thank you for this consultation. We will follow the patient with you during their hospital stay. You can reach a [facility] of the [facility]/11 via [employer] A total of 35 minutes were spent with greater than 50% of that time face to face with the patient, personally reviewing all current laboratories, imaging studies, past medication reconciliation, outpatient chart review, and discussion with specialists to collaborate care for the patient with attending. Please see attending documentation for corrections and/or additions. Admission and Anticipated Discharge Date Admission Date: May 08, 2022 Supervising Physician Co-Signing Physician Notes Attending addendum: The patient was seen and examined in medical floor He has been feeling much better Minimal pain at the back without radiation Has been getting physical therapy and will be discharged home tomorrow On examination Sitting on a chair without any acute distress Hemodynamically stable Chest-clear to auscultate bilaterally Heart-S1, S2 regular Abdomen-distended, soft, nontender with normal bowel sound Extremities-trace edema bilaterally His labs and imaging studies reviewed Status post lumbar procedure remains medically stable Agree with assessment and plan as outlined above by ALFREDA Tsang Dr Subjective Patient was seen and examined in room 308-1 in follow up for lumbar surgery. Feeling well sitting upright in bedside chair. Some incisional discomfort but no radicular symptoms in lower extremities. Passing flatus with bowel movement this morning. Tolerating breakfast without nausea or vomiting. No fever, chills, lightheadedness, chest pain, shortness of breath, dysuria, diarrhea or constipation. Did discuss elevated hemoglobin A1c. Review of Systems Review of Systems: At least ten systems reviewed and negative except as noted in the HPI. Physical Exam Physical Exam: Gen: WD/WN, NAD, sitting in bedside chair, A&Ox3 HEENT: Normocephalic, atraumatic, conjunctivae moist, sclerae anicteric, mucous membranes moist Lung: Clear to Auscultation bilaterally, no wheezes/rales/rhonchi Heart: Regular rate, regular rhythm, no murmurs, rubs, or gallops Abdomen: Soft, NT, ND +BS x 4 Extremities: Spinal dressing c/d/i. MARISOL drain visualized. No edema Skin: Warm, no rash Results & Data Results & Data ([facility]) Vital Signs (Past 12 Hours) Vital Signs Temp Pulse Resp BP Pulse Ox O2 Del Method 05/10/22 07:24 37.1 C 82 17 134/80 95 Room Air Laboratory Results Short CBC 05/10/22 Range/Units 05:40 WBC 11.01 H (4.8-10.8) K/ul Hgb 9.9 L (14.0-18.0) g/dl Hct 29.2 L (40.1-51.0) % Plt Count 184 (130-400) K/uL BMP 05/10/22 05:40 Sodium 136 Potassium 4.1 Chloride 102 Carbon Dioxide 28 BUN 18 Creatinine 1.06 Glucose 150 H Calcium 8.5 Diagnostic Findings Lumbar Spine X-Ray 05/08/22 07:45 FL lumbar spine 2-3V CLINICAL HISTORY: L2-S1 DECOMPRESSION AND FUSION WITH INTERBODIES TECHNIQUE: 5 views were obtained with the C-arm in the OR with the above procedure. Total fluoroscopy time was 46.1 seconds. Radiation dose was 40.01 mGy. Comparison: None available at the time of this dictation. FINDINGS/IMPRESSION: Intraoperative images were obtained of L2-S1 decompression and fusion. Please correlate with intraoperative fluoroscopy and operative report. ACT 112: Negative or not required by law. Electronically signed by: Basilio Morrow M.D. 05/08/2022 1:04 PM
--- NOTE | 2022-05-10 12:46 | Orthopedic Progress Note ---
Date of Service May 10, 2022 Assessment & Plan (1) Neurogenic claudication due to lumbar spinal stenosis: Plan: At this time continue physical therapy monitor his MARISOL output anticipate discharge home tomorrow. Admission and Anticipated Discharge Date Admission Date: May 08, 2022 Subjective Back pain controlled leg symptoms markedly improved Physical Exam Physical Exam: Patient is in the chair at the bedside. Is good strength testing. Peers comfortable. Results & Data ([facility]) Vital Signs (Past 12 Hours) Vital Signs Temp Pulse Resp BP Pulse Ox O2 Del Method 05/10/22 07:24 37.1 C 82 17 134/80 95 Room Air
[2022-05-10] MEDS: CYANOCOBALAMIN (B-12) 500 MCG TABLET PO SCH (16:41)
[2022-05-10] MEDS: CHOLECALCIFEROL 5,000 UNITS 125 MCG TAB PO SCH (16:41)
[2022-05-10] MEDS: DOCUSATE SODIUM/SENNA 50/8.6MG TAB PO SCH (20:25)
[2022-05-11] MEDS: oxyCODONE HCL IR 5 MG TAB (IMMEDIATE RELEASE) PO PRN ×2 (04:35→11:36)
[2022-05-11 06:25] LABS: Hemoglobin 10.3 g/dl (14.0-18.0); Mean Corpuscular Hemoglobin 32.5 pg (25.0-34.0); Mean Corpuscular Hgb Conc 35.5 g/dL (32.0-36.0); Mean Corpuscular Volume 91.5 fL (80.0-100.0); Mean Platelet Volume 10.7 fL (9.4-12.4); Platelet Count 205 K/uL (130-400); RDW Coefficient of Variation 13.3 % (11.5-14.5); RDW Standard Deviation 44.4 fL (36.4-46.3); Red Blood Count 3.17 M/uL (4.63-6.08); White Blood Count 11.33 K/ul (4.8-10.8)
[2022-05-11 06:57] LABS: Calcium 8.9 mg/dl (8.5-10.1); Potassium 4.4 mmol/L (3.5-5.1)
[2022-05-11 07:03] LABS: BUN Creatinine Ratio 18.2 (10-20); Est GFR (African American) 98.3 ml/min; Est GFR (Non-African American) 84.8 ml/min
[2022-05-11] MEDS: ACETAMINOPHEN 500 MG TAB PO PRN (07:48)
[2022-05-11] MEDS: gemfibroziL 600 MG TAB PO SCH (07:48)
[2022-05-11] MEDS: dexAMETHasone 6 MG in SYRINGE 0 ML IV SCH (07:48)
[2022-05-11] MEDS: PANTOprazole 40 MG TAB PO SCH (07:49)
[2022-05-11] MEDS: GABAPENTIN 600 MG TAB PO SCH ×2 (07:49→14:11)
[2022-05-11] MEDS: LOSARTAN/HCTZ 50/12.5MG TAB PO SCH (07:49)
[2022-05-11] MEDS: TAMSULOSIN HCL 0.4 MG CAP PO SCH (07:49)
[2022-05-11] MEDS: ASPIRIN 81 MG ECTAB PO SCH (07:50)
[2022-05-11] MEDS: ROSUVASTATIN CALCIUM 10 MG TAB PO SCH (07:50)
[2022-05-11] MEDS: SERTRALINE HCL 50 MG TABLET PO SCH (07:50)
--- NOTE | 2022-05-11 09:18 | Discharge Summary ---
Date of Service May 11, 2022 Admission HPI Per Admitting Provider This is a 57-year-old male presents with chronic persistent back and leg pain after failing since course of nonoperative care is here for surgical intervention. Principal Diagnosis Lumbar spinal stenosis with neurogenic claudication Discharge Data Allergies Allergy/AdvReac Type Severity Reaction Status Date / Time No Known Allergies Allergy Verified 05/08/22 06:53 Consultations 05/08/22 16:50 Consult Hospitalist Routine Procedures Performed Operation Date: 05/08/22 07:45 Actual Procedures p L2-S1 Decompression and Fusion, Spinal Cord Monitoring(Not Applicable) - Laci Najera DO Ordered Studies 05/08/22 07:45 [place] lumbar spine 2-3V Routine Hospital Course (1) Neurogenic claudication due to lumbar spinal stenosis: Patient with lumbar decompression fusion tolerated this well second orthopedic for postop labor postop day 1 is up and ambulating progressed to postop 2 on postop day #3 pain is controlled marked improvement of his pain EXTR strength testing. MARISOL drain decreasing probably. Subsequent discharge home. Discharge orders instructions from the chart for further review. Total Time Total Time Spent Total Time Spent (In Minutes): 20 minutes Discharge Plan Discharge Items Patient Disposition: Home - Self-Care Reason For Visit: SPinal Stenosis, Lumbar Region without Neurogenic Discharge Diagnosis: Lumbar spinal stenosis with neurogenic claudication Activity: As commented below Non-emergency contact: Primary Care Provider Call non-emergency contact if: you have any medication questions Follow-up/Referrals: Cherise Rice D.O. [Primary Care Provider] - Diet: Regular Addtl Attending Provider Instructions: ACTIVITY RECOMMENDATIONS: SELF CARE INSTRUCTIONS AFTER THORACIC/LUMBAR FUSIONS 1. You may walk to your tolerance. It is good exercise for your legs and back. Expect some back and intermittent leg aches and pains. 2. You may perform "counter-top" level activities (make a sandwich, carmela with a project, etc.). 3. No bending or lifting of more than 10 pounds or back twisting of any nature (roll like a log when turning in bed). 4. You may ride in a car for 20-30 minutes at a time. No driving until after your first visit with your doctor. 5. Frequent changes of position and restricting sitting to 30 minutes at a time will help limit the amount of back spasms and stiffness you may experience. 6. You may discontinue the use of ambulatory aids (cane, crutches, etc.) once your strength and confidence allow. 7. You may soda fountain manager the shower and let water strike your incision when you arrive home at least once daily. Do not take a tub bath, sit in a hot tub or go into a swimming pool until after your first recheck in the office. SPECIAL CARE INSTRUCTIONS: VERY IMPORTANT TO READ AND REVIEW A. Your surgical incision has been closed with a cosmetic suture under the skin that will dissolve in about 6 weeks. In 14 days, you can use a pair of clean scissors and cut the suture that is left outside of the skin at the ends of your incision. 1. The small skin tapes can be removed 7 days after surgery if they have not fallen off by that point. 2. You may keep the wound open to air as much as possible to promote healing after post-op day number 5 unless told otherwise by your doctor. 3. If you think the wound looks like it is becoming infected (redness or worsening drainage) and/or you are experiencing fever, chill or worsening back pain and muscle spasms, contact the office so that we may evaluate you as soon as possible. B. Complications are uncommon, but please contact us if you have any signs or symptoms of: 1. wound infection (fever higher than 102.5 degrees F, redness, separation of wound, drainage, or increasing pain from the incision) 2. blood clots in legs (pain, swelling, redness and warmth in legs) 3. urinary tract infection (fever higher than 102.5 degrees F, burning upon urination or increased frequency of urination) 4. nerve problems (inability to walk on your toes or heels, numbness, loss of bowel or bladder control) 5. any other symptoms that concern you C. Please call the office at if you have any concerns or questions about your operation or recovery. D. No smoking! Smoking drastically decreases the chance of a solid fusion. E. Do not take any anti-inflammatory medications (Indocin, Advil, Motrin, Aspirin, Naprosyn, etc.) as these may inhibit the chance of a solid fusion. Tylenol is okay to take for pain. MANAGING PAIN AFTER SPINAL SURGERY 1. Narcotic medication is intended for short-term use and will be provided for surgical pain. Surgical pain usually lasts for a period of 4-6 weeks. Narcotic medication includes Percocet, Vicodin, Darvocet, Tylenol #3 or Lortab. 2. Longer-term pain is more appropriately treated with non-narcotic medication such as Tylenol ES. 3. Muscle spasm is not appropriately treated with narcotics. Muscle relaxers such as Soma, Flexeril or Skelaxin can be used along with Tylenol ES. 4. Remember that we all live with some "aches and pains". This is not unusual or uncommon after an injury or as we get older. a. Back pain is expected and may include muscle spasms for 4 to 6 weeks after surgery. The pain should gradually improve. If the pain worsens for no apparent reason, please contact the office. b. Intermittent leg pain may also be experienced and should not be concerned about unless it worsens for no apparent reason. If so, please contact the office. 5. We will provide appropriate medication within the normal guidelines of their prescribed use. We will also be very cautious and aware of potential abuse and extended duration of patients' medication needs. a. Pain medications are for your comfort and to assist with sleep and rest so that the tissue can heal. They are not provided in order to return to normal activity and should not be used through the day. To do so or worsening pain at night can result from ongoing tissue damage and development of tolerance to the prescribed medicine. 6. Please allow 2-3 days to process refills. Prescriptions will not be mailed but must be picked up at the office. FOLLOW UP VISIT: Keep your scheduled follow-up appointment. Any questions, please call the office at . Pending Studies at Discharge: No Stand-Alone Forms: [facility], Smoking Cessation Medications and DC Order Prescriptions: New tramadol 50 mg tablet 50 mg PO Q6H PRN (Reason: pain, moderate) Qty: 30 0RF oxycodone 5 mg tablet 5 mg PO Q6H PRN (Reason: pain, severe) Qty: 30 0RF Continued celecoxib [Celebrex] 200 mg Capsule 200 mg PO QAM cyclobenzaprine 10 mg Tablet 10 mg PO TID PRN (Reason: Pain) gabapentin 600 mg Tablet 600 mg PO TID Label Comments: usually only takes 600mg in the morning, occasionally 600mg at night. hydrocodone-acetaminophen 5-325 mg Tablet 1 tab PO BID PRN (Reason: Pain) losartan-hydrochlorothiazide [Hyzaar] 100-25 mg Tablet 1 tab PO QAM cyanocobalamin (vitamin B-12) [Vitamin B-12] 500 mcg Tablet 500 mcg PO Q2D tamsulosin [Flomax] 0.4 mg Capsule 0.4 mg PO QAM gemfibrozil [Lopid] 600 mg Tablet 600 mg PO BID omeprazole 20 mg Capsule,Delayed Release(Dr/Ec) 20 mg PO QAM sertraline [Zoloft] 50 mg Tablet 50 mg PO QAM rosuvastatin [Crestor] 10 mg Tablet 10 mg PO QAM tadalafil [Cialis] 5 mg Tablet 5 mg PO QAM cholecalciferol (vitamin D3) [Vitamin D3] 125 mcg (5,000 unit) Tablet 125 mcg PO Q2D aspirin 81 mg Capsule 81 mg PO QAM Discharge Orders: Discharge Order (Routine); Ordered 05/11/22 Ordered By: Laci Najera Admission Data Admit Date/Time: 05/08/22 11:54 Attending Provider: Laci Najera Admit Provider: Laci Najera Primary Care Provider: Cherise Rice. Other Providers: Jessica Carballo ; Nneka Lyons Jill
--- NOTE | 2022-05-11 09:45 | Hospitalist Progress Note ---
Date of Service May 11, 2022 Assessment & Plan (1) Status post lumbar surgery: (2) Neurogenic claudication due to lumbar spinal stenosis: Plan: Post op day# 3 S/P L1-S1 decompression and fusion by Dr Najera EBL#[id number] Pain/wound management per ortho PT/OT as appropriate encourage incentive spirometry Rodriguez cath removed Acute blood loss anemia, expected 2/2 surgery EBL of 1400ml pre op hgb 14; hgb 10.8 today ->9.8 --> 10.3 hemodynamically stable no need for transfusion will continue to monitor Leukocytosis - resolving wbc 14.10 -> 11 likely reactive in setting of surgery monitor (3) Hypertension: Plan: BP stable Continue losartan, HCTZ (4) HLD (hyperlipidemia): Plan: Continue rosuvastatin, gemfibrozil (5) GERD (gastroesophageal reflux disease): Plan: Continue PPI (6) Morbid obesity: Plan: Obtained a1c due to elevated BSG and A1c 5.8, meeting criteria for pre-diabetes; discussed importance of BSG control for surgical healing with weight loss, controlling other risk factors like HTN, HLD. PCP to follow a1c (7) Sleep apnea: Plan: CPAP at bedtime DVT Prophylaxis SCDSs Disposition per primary team Follows with Dr Cherise Rice [facility] for routine care Pt was seen and care coordinated with Dr Lyons. See addendum Thank you for this consultation. We will follow the patient with you during their hospital stay. You can reach a member of the [facility] Hospitalist Team 12/11 via [employer] A total of 25 minutes were spent with greater than 50% of that time face to face with the patient, personally reviewing all current laboratories, imaging studies, past medication reconciliation, outpatient chart review, and discussion with specialists to collaborate care for the patient with attending. Please see attending documentation for corrections and/or additions. Admission and Anticipated Discharge Date Admission Date: May 08, 2022 Supervising Physician Co-Signing Physician Notes Attending addendum: The patient was seen and examined in medical floor He is a status post lumbar decompression and fusion and awaiting to go home today Denies any significant symptoms On examination Sitting on a chair without any acute distress Remains hemodynamically stable Chest-clear to auscultate bilaterally Heart-S1, [id number] Abdomen-benign Extremities-negative for any edema His labs and medications reviewed Status post lumbar decompression and fusion remains medically stable Agree with assessment and plan as outlined above by ALFREDA Tsang Dr Subjective Patient was seen and examined in room 308-1 in follow up for lumbar surgery. Feeling well and ambulating around room with cane without difficulty. Some incisional discomfort but no radicular symptoms in lower extremities. Tolerating breakfast without nausea or vomiting. Having bowel movements. No fever, chills, lightheadedness, chest pain, shortness of breath, dysuria, diarrhea or constipation. Did discuss elevated hemoglobin A1c and he is planning to follow-up with PCP about this Review of Systems Review of Systems: At least ten systems reviewed and negative except as noted in the HPI. Physical Exam Physical Exam: Gen: WD/WN, NAD, sitting in bedside chair, A&Ox3 HEENT: Normocephalic, atraumatic, conjunctivae moist, sclerae anicteric, mucous membranes moist Lung: Clear to Auscultation bilaterally, no wheezes/rales/rhonchi Heart: Regular rate, regular rhythm, no murmurs, rubs, or gallops Abdomen: Soft, NT, ND +BS x 4 Extremities: Spinal dressing c/d/i. MARISOL drain visualized. No edema Skin: Warm, no rash Results & Data Results & Data ([facility]) Vital Signs (Past 12 Hours) Vital Signs Temp Pulse Resp BP Pulse Ox O2 Del Method 05/11/22 07:36 36.7 C 71 18 145/78 H 95 Room Air Laboratory Results Short CBC 05/11/22 Range/Units 05:50 WBC 11.33 H (4.8-10.8) K/ul Hgb 10.3 L (14.0-18.0) g/dl Hct 29.0 L (40.1-51.0) % Plt Count 205 (130-400) K/uL BMP 05/11/22 05:50 Sodium 136 Potassium 4.4 Chloride 102 Carbon Dioxide 27 BUN 18 Creatinine 0.99 Glucose 165 H Calcium 8.9 Diagnostic Findings Lumbar Spine X-Ray 05/08/22 07:45 [place] lumbar spine 2-3V CLINICAL HISTORY: L2-S1 DECOMPRESSION AND FUSION WITH INTERBODIES TECHNIQUE: 5 views were obtained with the C-arm in the OR with the above procedure. Total fluoroscopy time was 46.1 seconds. Radiation dose was 40.01 mGy. Comparison: None available at the time of this dictation. FINDINGS/IMPRESSION: Intraoperative images were obtained of L2-S1 decompression and fusion. Please correlate with intraoperative fluoroscopy and operative report. ACT 112: Negative or not required by law. Electronically signed by: Basilio Morrow M.D. 05/08/2022 1:04 PM
== END 2022-05-11 15:11 | disposition home or self-care (01) | DRG 454 ==
LOC: ASU 06:22 → 3E 11:54
DX: E66.01 Morbid (severe) obesity due to excess calories; Z86.16 Personal history of COVID-19; E78.1 Pure hyperglyceridemia; Z20.822 Contact with and (suspected) exposure to COVID-19; R73.03 Prediabetes; M54.9 Dorsalgia, unspecified; D62 Acute posthemorrhagic anemia; K21.9 Gastro-esophageal reflux disease without esophagitis; M51.16 Intervertebral disc disorders with radiculopathy, lumbar region; G47.33 Obstructive sleep apnea (adult) (pediatric); M48.062 Spinal stenosis, lumbar region with neurogenic claudication; Z79.82 Long term (current) use of aspirin; Z68.41 Body mass index [BMI] 40.0-44.9, adult; I10 Essential (primary) hypertension; F17.290 Nicotine dependence, other tobacco product, uncomplicated; G89.29 Other chronic pain; Z79.1 Long term (current) use of non-steroidal anti-inflammatories (NSAID); Z79.899 Other long term (current) drug therapy